=== PATIENT | male | born 1970 | race Two or more races ===

== ENCOUNTER 2024-03-25 13:42 | Emergency (ER) | payer OTHER ==
[~2024-03-25] VITALS: Ht 167.6 cm; Wt 113.4 kg
[2024-03-25 16:05] LABS: HEMATOCRIT 42.9 % (39.0-48.0); HEMOGLOBIN 14.3 g/dL (13-16.00); MEAN CELL VOLUME 83.2 fL (80.0-100.00); MEAN CORPUSCULAR HEMOGLOBIN 27.6 pg (27.00-32.0); MEAN CORPUSCULAR HGB CONC 33.2 g/dl (32.0-36.0); PLATELET COUNT 277 K/uL (150-450); RED BLOOD COUNT 5.16 M/uL (4.00-6.00); RED CELL DISTRIBUTION WIDTH 13.7 % (11.5-14.5)
== END 2024-03-25 18:01 | disposition home or self-care (01) ==
LOC: ER 13:43
DX: U07.1 COVID-19 (principal); Z88.0 Allergy status to penicillin

== ENCOUNTER 2024-09-20 14:55 | Inpatient (IN) | payer OTHER ==
[~2024-09-20] VITALS: Ht 167.6 cm; Wt 113.4 kg
--- NOTE | 2024-09-20 16:06 | NUR ---
SE RECIBE PACIENTE MASCULINO ALERTA Y ORIENTADO X3 REFIERE VENIR POR DOLOR PELVICO DE MANERA GRADUAL QUE INICIO HOY A LAS 10/11AM. EL DOLOR SE LOCALIZA ENTRE LA PARTE BAJO DEL ABDOMEN MAS AL LADO IZQ. NO SE IRRADIA A CHANTAL ROSEMARY. NO TEJEDA TENIDO FIEBRE, ARDOR NI DIFICULTAD PARA ORINAR.
--- NOTE | 2024-09-20 18:23 | NUR ---
SE EJECUTAN ORDENES MEDICAS EN RBANDT TOTALIDAD
[2024-09-20 18:33] LABS: HEMATOCRIT 44.2 % (39.0-48.0); HEMOGLOBIN 14.8 g/dL (13-16.00); MEAN CORPUSCULAR HEMOGLOBIN 27.2 pg (27.00-32.0); MEAN CORPUSCULAR HGB CONC 33.6 g/dl (32.0-36.0); PLATELET COUNT 339 K/uL (150-450); RED BLOOD COUNT 5.46 M/uL (4.00-6.00); RED CELL DISTRIBUTION WIDTH 14.2 % (11.5-14.5)
[2024-09-20 19:28] LABS: ALBUMIN 3.8 gm/dL (3.4-5.0); BILIRUBIN TOTAL 0.51 mg/dL (0.3-1.2); CALCIUM 9.3 mg/dL (8.5-10.1); CREATININE SERUM 1.25 mg/dL (0.70-1.30); GFR 60.19; GLOBULINA 4.5 G/DL (2.4-3.5); POTASSIUM 4.3 mEq/L (3.5-5.1); TOTAL PROTEIN 8.3 gm/dL (6.4-8.2)
[2024-09-20] MEDS ORDERED: CIPROFLOXACIN IN 5 % DEXTROSE 400 MG/200 ML PIGGYBAG IV ONE ×2 (19:30→20:01)
[2024-09-20 19:35] LABS: PH,URINE 5.5 (5.0-8.0); URINE APPEARANCE Clear; URINE BILIRRUBIN Negative (NEGATIVE); URINE BLOOD Negative; URINE COLOR Yellow; URINE GLUCOSE Negative (NEGATIVE); URINE KETONE Negative (NEGATIVE); URINE LEUKOCYTE Moderate; URINE NITRATE Negative; URINE PROTEIN Negative (NEGATIVE); URINE UROBILINOGEN 0.2 E.U./dl
[2024-09-20 19:36] LABS: URINE BACTERIA 57.5 uL (0.0-1933); URINE EPITHELIAL CELLS 1.5 uL (0.0-38.8); URINE RBC 2.5 uL (0.0-20.8); URINE WBC 37.1 uL (0.0-23.2)
[2024-09-20 19:37] LABS: URINE CAST 0.29 uL (0.0-1.40)
[2024-09-20] MEDS ORDERED: KETOROLAC TROMETHAMINE 15 MG VIAL IV ONE (19:45)
[2024-09-20] MEDS ORDERED: METRONIDAZOLE/SODIUM CHLORIDE 500 MG/100 ML PIGGYBACK IV ONE ×2 (19:45→20:01)
[2024-09-20] MEDS ORDERED: MORPHINE SULFATE 2 MG/ML SYRINGE IV ONE (19:45)
[2024-09-20] MEDS ORDERED: KETOROLAC TROMETHAMINE 30 MG VIAL ONE (20:00)
[2024-09-21] MEDS ORDERED: CIPROFLOXACIN IN 5 % DEXTROSE 200 ML IV SCH (00:14)
[2024-09-21] MEDS ORDERED: 0.9 % SODIUM CHLORIDE 1,000 ML IV SCH (00:15)
[2024-09-21] MEDS ORDERED: ONDANSETRON HCL 4 MG in 0.9 % SODIUM CHLORIDE 50 ML IV PRN (00:15)
[2024-09-21] MEDS ORDERED: METRONIDAZOLE/SODIUM CHLORIDE 100 ML IV SCH (01:00)
[2024-09-21] MEDS ORDERED: MORPHINE SULFATE 2 MG/ML CARTRIDGE IV SCH (02:00)
[2024-09-21 04:00] VITALS: BP 106/64; O2SAT 97
[2024-09-21 04:15] LABS: INR 1.04; PARTIAL THROMBOPLASTIN TIME 26.7 SECONDS (22.0-34.0); PROTHROMBIN TIME 11.3 SECONDS (9.0-11.5)
[2024-09-21] MEDS ORDERED: FAMOTIDINE/PF 20 MG in 0.9 % SODIUM CHLORIDE 8 ML IV PUSH SCH (09:00)
[2024-09-21 09:14] VITALS: BP 130/60
[2024-09-21] MEDS ORDERED: MORPHINE SULFATE 4 MG/ML CARTRIDGE IV PRN (15:45)
[2024-09-21] MEDS ORDERED: ONDANSETRON HCL 4 MG in DEXTROSE 5 % IN WATER 50 ML IV PRN (15:45)
[2024-09-21 16:57] VITALS: BP 134/75; O2SAT 95
[2024-09-22 02:12] VITALS: BP 120/60
[2024-09-22 08:23] LABS: HEMATOCRIT 38.6 % (39.0-48.0); HEMOGLOBIN 12.6 g/dL (13-16.00); MEAN CELL VOLUME 82.7 fL (80.0-100.00); MEAN CORPUSCULAR HGB CONC 32.6 g/dl (32.0-36.0); PLATELET COUNT 257 K/uL (150-450); RED BLOOD COUNT 4.66 M/uL (4.00-6.00); RED CELL DISTRIBUTION WIDTH 14.3 % (11.5-14.5)
[2024-09-22 08:52] LABS: ALBUMIN 2.9 gm/dL (3.4-5.0); CALCIUM 8.1 mg/dL (8.5-10.1); CREATININE SERUM 0.97 mg/dL (0.70-1.30); GFR 80.65; MAGNESIUM 2.1 mg/dL (1.8-2.4); PHOSPHOROUS 2.8 mg/dL (2.5-4.9); POTASSIUM 4.37 mEq/L (3.5-5.1)
[2024-09-22 08:55] VITALS: BP 163/64
[2024-09-22] MEDS ORDERED: LACTOBACILLUS ACIDOPHILUS 1 CAP CAP PO SCH (09:00)
[2024-09-22] MEDS ORDERED: POLYETHYLENE GLYCOL 3350 17 GM BLIST.PACK PO SCH (13:40)
[2024-09-22 16:03] VITALS: BP 155/88; O2SAT 96
[2024-09-23 02:27] VITALS: BP 133/79; O2SAT 95
[2024-09-23 08:58] VITALS: BP 125/70; O2SAT 96
[2024-09-23] MEDS ORDERED: CIPRO500 MG PO (14:02)
[2024-09-23] MEDS ORDERED: METRONIDAZOLE500 MG PO (14:03)
[2024-09-23 17:45] VITALS: BP 124/56; O2SAT 96
== END 2024-09-23 17:45 | disposition home or self-care (01) | DRG 392 ==
LOC: ER 14:58 → MEDI 09-21 00:15
PROVIDERS: Colon & Rectal Surgery; General Practice; Preventive Medicine Public Health & General Preventive Medicine; ADMIT Internal Medicine; ATTEND Internal Medicine
PROC: BW21ZZZ Computerized Tomography (CT Scan) of Abdomen and Pelvis (ICD-10-PCS; principal; 2024-09-20)
DX: K57.32 Diverticulitis of large intestine without perforation or abscess without bleeding (principal); I10 Essential (primary) hypertension

== ENCOUNTER 2024-12-07 06:45 | Day surgery (SDC) | payer OTHER ==
[~2024-12-07 06:45] MED LIST: CIPRO500 MG PO; METRONIDAZOLE500 MG PO
[2024-12-07] MEDS ORDERED: fentaNYL CITRATE 50 MCG/ML AMPUL IV PUSH ONE (08:30)
[2024-12-07] MEDS ORDERED: MIDAZOLAM HCL 2 MG/2 ML VIAL IV ONE (08:30)
[2024-12-07] MEDS ORDERED: ONDANSETRON HCL 2 MG/ML VIAL IV ONE (08:30)
[2024-12-07] MEDS ORDERED: DIPHENHYDRAMINE HCL 50 MG/ML VIAL 1ML IV ONE (08:30)
== END 2024-12-07 09:35 | disposition home or self-care (01) ==
LOC: AMB-ENDOS 06:45
PROVIDERS: ATTEND Colon & Rectal Surgery
DX: K62.1 Rectal polyp (principal); K57.30 Diverticulosis of large intestine without perforation or abscess without bleeding; K57.32 Diverticulitis of large intestine without perforation or abscess without bleeding; Z88.0 Allergy status to penicillin